=== PATIENT | male | born 1990 | race African-American/Black ===

== ENCOUNTER 2020-07-31 10:19 | Emergency (ER) | payer OTHER ==
[2020-07-31 10:26] VITALS: BP 135/86; PULSE 93; TEMP 97.5; BMI 26.1
[2020-07-31] MEDS ORDERED: KETOROLAC TROMETHAMINE 60 MG/2 ML VIAL IM ONE (10:40)
[2020-07-31] MEDS ORDERED: ACETAMINOPHEN 325 MG TABLET (FP) PO ONE (10:40)
[2020-07-31] MEDS ORDERED: LIDOCAINE VISCOUS 2% ORAL/TOP 20 ML UNIT-DOSE CUP MM ONE (10:50)
[2020-07-31] MEDS ORDERED: LIDOCAINE VISCOUS 2% ORAL/TOP 20 ML UNIT-DOSE CUP ONE (11:13)
[2020-07-31] MEDS ORDERED: KETOROLAC TROMETHAMINE 30 MG/1 ML VIAL ONE (11:13)
[2020-07-31] MEDS ORDERED: ACETAMINOPHEN 325 MG TABLET (FP) ONE (11:15)
== END 2020-07-31 12:30 | disposition home or self-care (01) ==
LOC: JER 10:19
PROC: 3E0233Z Introduction of Anti-inflammatory into Muscle, Percutaneous Approach (ICD-10-PCS; principal; 2020-07-31)
DX: K08.89 Other specified disorders of teeth and supporting structures (principal)
CPT/HCPCS: 99284-25